=== PATIENT | male | born 1980 | race Caucasian/White ===

== ENCOUNTER 2022-09-06 02:26 | Emergency (ER) | payer BC ==
[~2022-09-06] VITALS: Ht 182.9 cm; Wt 97.5 kg
--- NOTE | 2022-09-06 02:27 | NUR ---
[facility] TO BED #9. DR. CLARK AT BEDSIDE
[2022-09-06 02:28] VITALS: BP 170/102
--- NOTE | 2022-09-06 02:28 | NUR ---
Patient BIB by ALS from home. C/O Palpitations x today. Per reported, patient had palpitations ~ 30 minutes. At the scence, HR 109-130, EKG A-FIB with RVR, no medication given. PMHx: A-FIB (6 months ago)
[2022-09-06] MEDS ORDERED: METOPROLOL 5 MG/5 ML VIAL IVP ONE (02:40)
[2022-09-06] MEDS ORDERED: NACL 0.9% 1,000 ML IV ONE (02:40)
--- NOTE | 2022-09-06 02:40 | NUR ---
PT CALLED ME TO BEDSIDE, "I THINK I'M BACK IN A SINUS RHYTHM" CM NOW SHOWS SR WITH RATE OF 80.
[2022-09-06 02:55] LABS: BASOPHILS # (AUTO) 0.1 K/uL (0.00-0.22); EOSINOPHILS # (AUTO) 0.2 K/uL (0-0.4); EOSINOPHILS % (AUTO) 3.4 % (0.0-4.0); HEMATOCRIT 45.9 % (36-52); HEMOGLOBIN 15.8 g/dL (12.0-18.0); LYMPHOCYTES # (AUTO) 2.6 K/uL (2.0-11.5); LYMPHOCYTES % (AUTO) 51.2 % (20.5-51.1); MEAN CORPUSCULAR HEMOGLOBIN 31 pg (27-31); MEAN CORPUSCULAR HGB CONC 34 g/dL (33-37); MEAN CORPUSCULAR VOLUME 88.5 fL (80-94); MONOCYTES # (AUTO) 0.6 K/uL (0.8-1.0); MONOCYTES % (AUTO) 12.5 % (1.7-9.3); NEUTROPHILS # (AUTO) 1.6 K/uL (1.8-7.7); NEUTROPHILS % (AUTO) 31.9 % (42.2-75.2); PLATELET COUNT (AUTO) 302 K/uL (140-450); RED BLOOD CELL COUNT(AUTO) 5.19 MIL/uL (4.20-6.10); RED CELL DISTRIBUTION WIDTH 13.7 % (11.6-13.7); WHITE BLOOD COUNT (AUTO) 5.1 K/uL (4.8-10.8)
[2022-09-06] MEDS ORDERED: METOPROLOL SUCCINATE 50 MG TABER PO SCH ×2 (03:05→09:00)
[2022-09-06 03:22] LABS: ALBUMIN 4.3 g/dL (3.4-5.0); ANION GAP 12.2 (8-16); CARBON DIOXIDE 27.7 mmol/L (21-32); CREATININE 0.9 mg/dL (0.6-1.3); POTASSIUM 3.9 mmol/L (3.5-5.1); TOTAL BILIRUBIN 0.9 mg/dL (0.0-1.0)
[2022-09-06 04:54] VITALS: BP 132/89
--- NOTE | 2022-09-06 04:54 | NUR ---
Patient discharged with v/s stable. Written and verbal after care instructions given and explained. Patient verbalized understanding. Ambulatory with steady gait. All questions addressed prior to discharge. Advised to follow up with PMD.
== END 2022-09-06 04:54 | disposition home or self-care (01) ==
LOC: MED 02:26
DX: I48.0 Paroxysmal atrial fibrillation (principal)
CPT/HCPCS: 36415; 71045; 80053; 83735; 84443; 85025; 93005; 96360; 99285; J7030; Q0092